=== PATIENT | female | born 1985 | race Caucasian/White ===

== ENCOUNTER → 2017-10-06 | Outpatient (CLI) | payer OTHER ==
[2017-10-06 17:32] LABS: URINE APPEARANCE TURBID (CLEAR); URINE BILIRUBIN NEG (NEG); URINE COLOR YELLOW; URINE NITRITE NEG (NEG); URINE SPECIFIC GRAVITY 1.027 (1.000-1.030); UROBILINOGEN NEG (NEG)
[2017-10-06 17:37] LABS: MANUAL MICROSCOPIC REQUIRED? NO; REVIEW REQ? NO
== END | disposition home or self-care (01) ==
LOC: C.LABSPEC 16:17
PROVIDERS: ATTEND Obstetrics & Gynecology
DX: Z34.01 Encounter for supervision of normal first pregnancy, first trimester (principal)

== ENCOUNTER → 2017-10-10 | Outpatient (CLI) | payer OTHER ==
[2017-10-10 14:51] LABS: BASO % 0.2 %; BASO ABS # 0.03 K/uL (0-0.2); COMPLETE YES; EOS % 0.4 %; HEMATOCRIT 36.9 % (37-47); IG% 0.5 %; LYMPH % 15.6 %; LYMPH ABS # 2.12 K/uL (1.2-3.4); MEAN CELL VOLUME 89.8 fL (80-100); MEAN CORPUSCULAR HEMOGLOBIN 30.9 pg (25-34); MEAN CORPUSCULAR HGB CONC 34.4 g/dl (32-36); MEAN PLATELET VOLUME 10.7 fL (7.4-10.4); MONO % 5.9 %; NEUT % 77.4 %; PLATELET COUNT 333 K/uL (130-400); RED BLOOD COUNT 4.11 M/uL (4.2-5.4); WHITE BLOOD COUNT 13.63 K/uL (4.8-10.8)
== END | disposition home or self-care (01) ==
LOC: C.LAB1850 13:10
PROVIDERS: ATTEND Obstetrics & Gynecology
DX: Z34.01 Encounter for supervision of normal first pregnancy, first trimester (principal)

== ENCOUNTER → 2017-11-15 | Outpatient (CLI) | payer OTHER | END | disposition home or self-care (01) | LOC: C.LAB1850 14:08 | PROVIDERS: ATTEND Obstetrics & Gynecology | DX: Z34.02 Encounter for supervision of normal first pregnancy, second trimester (principal); Z3A.00 Weeks of gestation of pregnancy not specified ==

== ENCOUNTER → 2018-02-07 | Outpatient (CLI) | payer OTHER ==
[2018-02-07 15:42] LABS: HEMATOCRIT 33.8 % (37-47); HEMOGLOBIN 11.7 g/dL (12.0-16.0)
== END | disposition home or self-care (01) ==
LOC: C.LAB1850 14:09
PROVIDERS: ATTEND Obstetrics & Gynecology
DX: Z34.03 Encounter for supervision of normal first pregnancy, third trimester (principal)

== ENCOUNTER 2021-06-23 07:59 | Inpatient (IN) ==
[2021-06-23] MEDS ORDERED: OXYTOCIN 30 UNITS/500 ML BAG IV PRN ×3 (09:32→15:30)
[2021-06-23 09:54] LABS: Hematocrit (blood only) 34.1 % (37-47); Hemoglobin 11.6 g/dL (12.0-16.0); Mean Corpuscular Hemoglobin 30.4 pg (25-34); Mean Corpuscular Volume 89.5 fL (80-100); Mean Platelet Volume 10.6 fL (7.4-10.4); Platelet Count 247 K/uL (130-400); RDW Coefficient of Variation 13.5 % (11.5-14.5); RDW Standard Deviation 44.2 fL (36.4-46.3); Red Blood Count 3.81 M/uL (4.2-5.4); White Blood Count 8.46 K/uL (4.8-10.8)
--- NOTE | 2021-06-23 10:14 | History & Physical Report ---
Date of Service June 23, 2021 Assessment & Plan (1) SROM (spontaneous rupture of membranes): Plan: 36 y/o at 38 5/7 wga admitted w/ SROM VSS Fetus cat 1 Labor - will manage expectantly, not previously checked so unsure of has progression. Plan recheck in few hours, start pit if no change GBS neg Epidural PRN Admission and Anticipated Discharge Date Admission Date: June 23, 2021 History of Present Illness Chief Complaint: SROM Primary Care Provider: NO PCP 36 y/o at 38 5/7 wga w/ BLAINE 07/02 by LMP 09/25 c/w tri US presents w/ c/o LOF since 5AM. +FM and irreg ctx, denies VB PNI: AMA Past [employer] Hx: G1 2000 D&E G2 2017 at 39 wks G3 2019 SAB G4 current Menarche 13, q23-27d cycles Denies abnl pap, 06/2020 neg cotest Denies hx STIs Allergies Allergy/AdvReac Type Severity Reaction Status Date / Time No Known Allergies Allergy Verified 06/23/21 09:08 Home Medications Medication Instructions Recorded Confirmed Type prenat.vits,alfredito,pms-ibyq-vzumm 1 tab PO DAILY 11/13/20 06/23/21 History acetaminophen 500 mg capsule 500 mg PO Q8 PRN 06/15/21 06/23/21 History diphenhydramine HCl 25 mg capsule 25 mg PO HS 06/15/21 06/23/21 History (Benadryl) ferrous sulfate 325 mg (65 mg 325 mg PO DAILY 06/15/21 06/23/21 History iron) tablet breast pump #1 ea 06/22/21 06/22/21 Rx Patient History Medical History No pertinent past medical history Surgical History History of bunionectomy Hx of LASIK Hx of oral surgery S/P dilation and curettage Family History Grandmother (Maternal) Diabetes Grandfather (Maternal) Diabetes Father Colonic polyp Denies family history of Ovarian cancer Breast cancer Colorectal cancer Social History Smoking Status: Never smoker Hx Alcohol Use: No Hx Substance Use: No Preferred Language: Namibian Communication Ability: Effective Flight Readiness Technician Required: No Beliefs That Will Affect Care: None marital status: marital status details: [phone] Current Living Situation: Family Current Living Situation Comment: and son current occupational status: employed current occupation: [employer]* Other Information That Helps Us Care for You: No Feels Safe at Home: Yes Safety Concerns: Feels Safe At This Time Assistive Devices: None Physical Exam Constitutional: WD/WN, vitals as above Respiratory: normal respiratory effort; no respiratory distress and no labored breathing Psychiatric: A+Ox3, euthymic affect Genitourinary: OB Exam Abdomen: + vertex and + estimated weight (7) Manual OB Exam: + cervical dilation 2 cm, + cervical effacement 70%, + station - 2 and + amniotic fluid (SSE +pooling, nitrazine, ferning) OB Exam Monitor Tracing: + external FHT monitor used, + external uterine monitor used (q3-6) and + category I (125/mod/+accel/-decel) Results & Data ([facility]) Vital Signs (Past 12 Hours) Vital Signs Temp Pulse Resp BP 06/23/21 08:23 98.4 F 20 06/23/21 08:17 88 114/55 L Laboratory Results OB Labs: Blood Type A Positive 11/24/20 Antibody Screen NEGATIVE 11/24/20 Hemoglobin 10.3 g/dL (12.0-16.0) L 04/10/21 Hematocrit 30.5 % (37-47) L 04/10/21 Mean Corpuscular Volume 91.4 fL (80-100) 11/24/20 Platelet Count 355 K/uL (130-400) 11/24/20 Rubella IgG Antibody Immune (Immune) 11/24/20 Rapid Plasma Reagin Nonreactive (Nonreactive) 11/24/20 Hepatitis B Surface Antigen Neg (Neg) 11/24/20 HIV (1&2) Ab and P24 Ag, 4th Gener Neg (Neg) 11/24/20 Glucose 1 Hour 50 gm Load 94 mg/dl (70-130) 04/10/21 Maternal Serum Alpha Fetoprotein 37.3 ng/mL 01/26/21 OB Optional Labs: Chlamydia trachomatis RNA NOT DETECTED (NOT DETECTED) 11/24/20 Neisseria gonorrhoeae RNA NOT DETECTED (NOT DETECTED) 11/24/20 Zika Virus 10/21/17 Alpha Fetoprotein Triple Screen SEE NOTE 01/26/21 Alpha Fetoprotein 32.2 NG/ML 11/15/17 Labs Reviewed: cf/sma neg 2016 afp neg--[facility] invitae low risk--[facility] GBS neg Diagnostic Findings Anterior plac Coding Level of Care Code None Diagnoses SROM (spontaneous rupture of membranes)
--- NOTE | 2021-06-23 11:52 | Labor Progress Brief Note ---
Date of Service June 23, 2021 Subjective Ctx seem to have spaced out Assessment & Plan (1) SROM (spontaneous rupture of membranes): Plan: 36 y/o at 38 5/7 wga admitted w/ SROM VSS Fetus cat 1 Labor - SVE unchanged, discussed pitocin as no change and ctx have spaced, pt amenable GBS neg Epidural PRN Admission and Anticipated Discharge Date Admission Date: June 23, 2021 Physical Exam Genitourinary: Manual OB Exam: + cervical dilation (2.5cm), + cervical effacement 70% and + station -2 OB Exam Monitor Tracing: + external FHT monitor used, + external uterine monitor used (q8-10) and + category I ( 125/mod/+accel/-decel) Results & Data ([facility]) Vital Signs (Past 12 Hours) Vital Signs Temp Pulse Resp BP 06/23/21 11:00 98.4 F 82 20 117/64 06/23/21 08:23 98.4 F 20 06/23/21 08:17 88 114/55 L Coding Level of Care Code None Diagnoses SROM (spontaneous rupture of membranes)
[2021-06-23] MEDS: LACTATED RINGER'S 1,000 ML IV PRN ×2 (12:09→14:19)
[2021-06-23] MEDS ORDERED: ePHEDrine sulfate 50 MG/ML AMP ONE (13:36)
[2021-06-23] MEDS ORDERED: fentaNYL citrate 100 MCG/2 ML VIAL ONE (13:36)
[2021-06-23] MEDS ORDERED: SODIUM CHLORIDE 0.9% INJ 10 ML VIAL ONE (13:36)
[2021-06-23] MEDS ORDERED: BUPIVACAINE 0.25% 30 ML VIAL ONE (13:36)
[2021-06-23] MEDS ORDERED: fentaNYL 2MCG/ML ROPIVACAINE 1.25MG/ML 100 ML BAG EPI ONE (13:37)
--- NOTE | 2021-06-23 14:08 | Anesthesiology Consultation ---
Date of Service June 23, 2021 Assessment & Plan (1) Encounter for pre-operative examination: Chart Review Chart Review: Acceptable Risk for Labor Epidural Consults Requested none ASA ASA2 Proposed Anesthesia Anesthesia Type: Labor Epidural Risk / Benefits Reviewed With: PT / POA / Parent / Guardian, Accepts Plan and Informed Consent Obtained History Height/Weight Height: 5 ft 7 in Weight: 75.75 kg Allergies Allergy/AdvReac Type Severity Reaction Status Date / Time No Known Allergies Allergy Verified 06/23/21 09:08 Medications Home Medications Medication Instructions Recorded Confirmed Last Taken prenat.vits,alfredito,srb-yjjq-[id number] 1 tab PO DAILY 11/13/20 06/23/21 06/23/21 06:00 acetaminophen 500 mg capsule 500 mg PO Q8 PRN 06/15/21 06/23/21 06/13/21 08:00 diphenhydramine HCl 25 mg capsule 25 mg PO HS 06/15/21 06/23/21 06/22/21 21:00 (Benadryl) ferrous sulfate 325 mg (65 mg 325 mg PO DAILY 06/15/21 06/23/21 06/23/21 06:00 iron) tablet breast pump #1 ea 06/22/21 06/22/21 Unknown Active Medications Generic Name Dose Route Start Last Admin Trade Name Freq PRN Reason Stop Dose Admin Lactated Ringer's 1,000 mls @ 125 mls/hr 06/23/21 09:32 06/23/21 13:32 Lr IV 06/25/21 09:31 999 mls/hr .Q8H PRN Infusion L&D Protocol Protocol Oxytocin 30 units in 500 mls @ 4 mls/hr 06/23/21 11:49 06/23/21 12:55 Pitocin IV 06/25/21 11:48 0.24 units/hr .Q24H PRN 4 mls/hr Labor Induction/Augmentation Titration Protocol 0.24 UNITS/HR Past Medical History Medical History No pertinent past medical history Exercise / Class Metabolic Activity II 4-5 Yardwork/Stairs/Walk up hill Past Family History Family History Grandmother (Maternal) Diabetes Grandfather (Maternal) Diabetes Father Colonic polyp Denies family history of Ovarian cancer Breast cancer Colorectal cancer Past Surgical History Surgical History History of bunionectomy Hx of LASIK Hx of oral surgery S/P dilation and curettage Past Anesthesia History No Hx of Anesthesia Complications and No Family Hx of Anesthesia Complications History of PONV No Hx of PONV and No Hx of Motion Sickness Social History Smoking Status: Never smoker Hx Alcohol Use: No Hx Substance Use: No substance use type: does not use Physical Exam Vital Signs Last Vital Signs Temp 98.4 F 06/23/21 13:10 Pulse 76 06/23/21 14:03 Resp 20 06/23/21 13:10 BP 134/69 06/23/21 13:54 Pulse Ox 98 06/23/21 14:03 ENMT Mouth: no dentition abnormality Thyromental Distance: > or= 3.5 Finger Breadths Mallampati Class: II Neck normal visual inspection Respiratory normal respiratory effort Auscultation: lungs clear to auscultation bilaterally Cardiovascular Rate/Rhythm: regular rate and regular rhythm Testing Laboratory Results 06/23/21 09:38
[2021-06-23] MEDS ORDERED: NALOXONE HCL 0.4 MG/1 ML VIAL/CARP IV PRN (14:27)
[2021-06-23] MEDS ORDERED: diphenhydrAMINE 50 MG/ML VIAL IV PRN (14:27)
[2021-06-23] MEDS ORDERED: ONDANSETRON INJ 2 MG/ML 2 ML VIAL IV PRN (14:27)
[2021-06-23] MEDS ORDERED: NALOXONE HCL 1 MG in SODIUM CHLORIDE 0.9% 1000ML 1,000 ML IV PRN (14:27)
[2021-06-23] MEDS ORDERED: NALBUPHINE HCL INJ 10 MG/ML AMP IV PRN (14:27)
[2021-06-23] MEDS ORDERED: ePHEDrine sulfate 50 MG/ML AMP IV PRN (14:27)
[2021-06-23] MEDS ORDERED: fentaNYL 2MCG/ML ROPIVACAINE 1.25MG/ML 100 ML BAG EPI PRN (14:27)
--- NOTE | 2021-06-23 15:17 | Delivery Summary ---
Vaginal Delivery Summary Date of Service June 23, 2021 Vaginal Delivery Summary and 2nd Degree LAC PREOPERATIVE DIAGNOSIS: 1. Single intrauterine at 38 5/7 2. Spontaneous rupture of membranes 3. AMA POSTOPERATIVE DIAGNOSIS: 1. Single intrauterine at 38 5/7 2. Spontaneous rupture of membranes 3. AMA 4. Delivered PROCEDURE: 1. Normal spontaneous vaginal delivery. SURGEON: Lynne Hood MD ANESTHESIA: Epidural. ESTIMATED BLOOD LOSS: 300 mL FLUIDS: Continuous LR. URINE OUTPUT: None. COMPLICATIONS: None. CONDITION: Stable. INDICATIONS: 36 y/o at 38 5/7 wga presented to L&D this morning after spontaneous rupture of membranes around 5AM. She was managed expectantly however did not make change and so was started on pitocin. She received an epidural for pain control and then rapidly progressed to complete and desired to push. FINDINGS: A viable male with Apgars of 8 and 9 at 1 and 5 minutes respectively. SPECIMEN: Cord blood OPERATIVE REPORT: The patient progressed to 10 cm, 100% effaced and +2 station, pushed over intact perineum with anesthesia to deliver a viable male infant, Apgars as above. Head of delivered in FREDERICK position. Loose body cord was present and delivered through. Body and shoulders were delivered without difficulty. was delivered to maternal abdomen and nursing staff. Delayed cord clamping was performed for 60 seconds. Cord was clamped and cut. Cord blood was obtained. Placenta delivered spontaneously intact with 3-vessel cord. IV oxytocin and fundal massage were given for excellent hemostasis. Vagina, cervix, perineum, and placenta were inspected. A second degree laceration was noted and repaired in the usual fashion using 3-0 Vicryl. There was excellent hemostasis. Sponge and needle counts correct x2. No sponges were left behind. Mother and stable in immediate period. [facility] Vaginal Delivery Charge Vaginal Delivery Codes: 84677 global code for the antepartum, delivery, and post- Delivery Type Details: and 2nd Degree LAC
[2021-06-23] MEDS ORDERED: BENZOCAINE 20% AER SPR 82.5 GM CAN EXT PRN (15:30)
[2021-06-23] MEDS ORDERED: SUPERCREAM 0.870% 15 GM JAR EXT PRN (15:30)
[2021-06-23] MEDS ORDERED: bisacodyL 10 MG SUPP PR PRN (15:30)
[2021-06-23] MEDS ORDERED: DIPHTHERIA/TETANUS/PERTUSSIS 0.5 ML SYR/VIAL IM ONE (15:30)
[2021-06-23] MEDS ORDERED: HYDROCORTISONE ACETATE 25 MG SUPP PR PRN (15:30)
[2021-06-23] MEDS ORDERED: LACTATED RINGER'S 1,000 ML IV SCH (15:30)
[2021-06-23] MEDS ORDERED: ACETAMINOPHEN 325 MG TAB PO PRN (15:30)
--- NOTE | 2021-06-23 15:35 | Anesthesia Procedure Note ---
Date of Service June 23, 2021 Anesthesia Post Epidural Note Vital Signs Vital Signs: Temp Pulse Resp BP Pulse Ox 98.4 F 76 20 110/66 98 06/23/21 13:10 06/23/21 15:31 06/23/21 15:16 06/23/21 15:31 06/23/21 14:43 Pain Intensity Bilateral Abdomen: Pain Intensity: 0 Notes Mental Status: alert / awake / arousable and participated in evaluation Nausea / Vomiting: adequately controlled Pain: adequately controlled Airway Patency, RR, SpO2: stable & adequate BP & HR: stable & adequate Hydration State: stable & adequate Neuraxial Anesthesia: was administered and sensory block is resolving Anesthetic Complications: no major complications apparent and Pt Satisfied with anesthetic care Epidural: Removed without complications and With tip intact
[2021-06-23] MEDS: DOCUSATE SODIUM 100 MG CAP PO SCH (20:24)
[2021-06-23] MEDS: IBUPROFEN 600 MG TAB PO PRN (20:24)
[2021-06-23] MEDS ORDERED: diphenhydrAMINE HCL 25 MG/10 ML UDC PO ONE (22:30)
[2021-06-24] MEDS: IBUPROFEN 600 MG TAB PO PRN ×5 (01:47→21:26)
--- NOTE | 2021-06-24 05:03 | Obstetrical Progress Note ---
Date of Service <Adam Duron DO - Last Filed: 06/24/21 07:10> June 24, 2021 Assessment & Plan <Adam Duron DO - Last Filed: 06/24/21 07:10> (1) Encounter for care and examination after delivery: - PPD 1 - A+, GBS-, RI - Vitals WNL. - Encourage . - Patient voiced she would like to stay another night, continue to monitor. <Lynne Hood MD - Last Filed: 06/24/21 07:13> (1) Encounter for care and examination after delivery: Subjective <Adam Duron DO - Last Filed: 06/24/21 07:10> Ambulation: ambulating normally Voiding: no voiding problems Passing Gas:: Yes Diet Tolerance:: regular diet Lochia:: Small Feeding Type:: breast feeding Current Pain Level(1-10): 4 Review of Systems Some cramping while . Denies fever, chills, sweats Denies shortness of breath, difficulty breathing, chest pain, palpitations, chest pressure. Denies breast pain. Denies dysuria. Denies headache or changes in vision Physical Exam <Adam Duron DO - Last Filed: 06/24/21 07:10> General: Alert, oriented. No acute distress. Cardiac: Regular rate and rhythm, no murmurs/rubs/gallops. Respiratory: Clear to auscultation bilaterally a/p, no wheezes/rales/rhonchi. No increased work of breathing. Symmetrical chest rise. No respiratory distress. Abdomen: Soft, nontender, nondistended. Bowel sounds present. Uterus: Uterine fundus firm, palpable 1 cm below umbilicus. Lower Extremities: No lower extremity edema or swelling. No deep calf pain. Golden's negative bilaterally Results & Data ([facility]) <Adam Duron DO - Last Filed: 06/24/21 07:10> Vital Signs (Past 12 Hours) Vital Signs Temp Pulse Pulse Resp BP BP Pulse Ox 06/24/21 04:00 37.0 C 68 16 108/69 98 06/24/21 00:00 36.9 C 68 16 103/69 98 06/23/21 18:20 37.1 C 94 H 18 107/66 95 06/23/21 17:45 36.8 C 85 20 102/55 L 06/23/21 17:31 84 105/60 06/23/21 17:16 91 H 112/73 06/23/21 17:01 89 107/60 <Lynne Hood MD - Last Filed: 06/24/21 07:13> Co-Signing Physician Notes Resident Physician Supervision Note: I interviewed and examined the patient. Discussed with Dr. Duron and agree with findings and plan as documented in the note. Any exceptions or clarifications are listed here: PP1 s/p , doing well. VSS, exam benign and wnl. Continue routine pp care, plan d/c tomorrow Documented By: Lynne Hood MD Resident Activity Tracking <Adam Duron DO - Last Filed: 06/24/21 07:10> Resident Involvement: Resident Care Provided Care Provided: OB Delivery
[2021-06-24 06:27] LABS: Hematocrit (blood only) 32.4 % (37-47); Mean Corpuscular Hemoglobin 30.6 pg (25-34); Mean Corpuscular Volume 90.3 fL (80-100); Platelet Count 239 K/uL (130-400); RDW Coefficient of Variation 13.5 % (11.5-14.5); RDW Standard Deviation 44.7 fL (36.4-46.3); Red Blood Count 3.59 M/uL (4.2-5.4); White Blood Count 10.98 K/uL (4.8-10.8)
[2021-06-24] MEDS: DOCUSATE SODIUM 100 MG CAP PO SCH ×2 (07:56→20:21)
[2021-06-24] MEDS: PRENATAL VITAMIN 1 TAB PO SCH (07:56)
[2021-06-24] MEDS ORDERED: bisacodyL 5 MG TABEC PO SCH (20:00)
[2021-06-25] MEDS: IBUPROFEN 600 MG TAB PO PRN ×2 (02:07→06:09)
--- NOTE | 2021-06-25 05:40 | Obstetrical Progress Note ---
Date of Service <Adam Duron DO - Last Filed: 06/25/21 07:09> June 25, 2021 Assessment & Plan <Adam Duron DO - Last Filed: 06/25/21 07:09> (1) Encounter for care and examination after delivery: - PPD 1 - A+, GBS-, RI - Vitals WNL. - Hgb 10.9 - Encourage . - Discussed discharge with patient. Patient wanting to go home today. Will discharge. <Judith Jackson MD - Last Filed: 06/25/21 07:18> (1) Encounter for care and examination after delivery: Subjective <Adam Duron - Last Filed: 06/25/21 07:09> Ambulation: ambulating normally Voiding: no voiding problems Passing Gas:: Yes Diet Tolerance:: regular diet Lochia:: Small Feeding Type:: breast feeding Current Pain Level(1-10): 3 (at stitches.) Review of Systems Denies fever, chills, sweats Denies shortness of breath, difficulty breathing, chest pain, palpitations, chest pressure. Denies breast pain. Denies dysuria. Denies headache or changes in vision Physical Exam <Adam Duron DO - Last Filed: 06/25/21 07:09> General: Alert, oriented. No acute distress. Cardiac: Regular rate and rhythm, no murmurs/rubs/gallops. Respiratory: Clear to auscultation bilaterally a/p, no wheezes/rales/rhonchi. No increased work of breathing. Symmetrical chest rise. No respiratory distress. Abdomen: Soft, nontender, nondistended. Bowel sounds present. Uterus: Uterine fundus firm, palpable 1 cm below umbilicus. Lower Extremities: No lower extremity edema or swelling. No deep calf pain. Golden's negative bilaterally Results & Data ([facility]) <Adam Duron - Last Filed: 06/25/21 07:09> Vital Signs (Past 12 Hours) Vital Signs Temp Pulse Pulse Resp BP Pulse Ox 06/24/21 23:50 36.9 C 77 18 112/73 06/24/21 19:40 37.2 C 74 16 117/74 97 <Judith Jackson MD - Last Filed: 06/25/21 07:18> Co-Signing Physician Notes Resident Physician Supervision Note: I interviewed and examined the patient. Discussed with Dr. Duron and agree with findings and plan as documented in the note. Any exceptions or clarificat ions are listed here: [ ] Documented By: Judith Jackson MD, FACOG Resident Activity Tracking <Adam Duron DO - Last Filed: 06/25/21 07:09> Resident Involvement: Resident Care Provided Care Provided: OB Delivery
[2021-06-25 06:09] LABS: Hematocrit (blood only) 32.1 % (37-47); Hemoglobin 10.9 g/dL (12.0-16.0)
[2021-06-25] MEDS: DOCUSATE SODIUM 100 MG CAP PO SCH (08:23)
[2021-06-25] MEDS: PRENATAL VITAMIN 1 TAB PO SCH (08:23)
== END 2021-06-25 11:37 | disposition home or self-care (01) | DRG 807 ==
LOC: OPB 07:59 → 4S1 08:00 → 4S2 18:33
DX: Z37.0 Single live birth; Z83.3 Family history of diabetes mellitus; Z3A.38 38 weeks gestation of pregnancy; O42.92 Full-term premature rupture of membranes, unspecified as to length of time between rupture and onset of labor; O70.1 Second degree perineal laceration during delivery

== ENCOUNTER 2023-01-28 06:52 | Inpatient (IN) ==
[2023-01-28] MEDS: LACTATED RINGER'S 1,000 ML IV PRN ×2 (07:00→11:04)
[2023-01-28] MEDS ORDERED: OXYTOCIN 30 UNITS/500 ML BAG IV PRN ×3 (07:15→18:31)
[2023-01-28] MEDS ORDERED: LIDOCAINE 1% LOCAL 20 ML VIAL INFIL PRN (07:15)
--- NOTE | 2023-01-28 07:17 | History & Physical Report ---
Date of Service January 28, 2023 Assessment & Plan (1) Normal labor: Plan admit for labor, expectant mangement, fetus category. anticipate History of Present Illness Chief Complaint: willir Primary Care Provider: Chari Moncada DO Patient is a 38owg with iup at39 4/7 weeks who presents to labor and delivery with contractions. no lof/vb. +fm. and Delivery Plans AMA>40@del *Anatomy Scan @ 20wks * Echo 22-24wks WNL *Growth scan @32wks *Weekly NST's @36 wks *Twice weekly NST @38wks *Weekly OFELIA's @38wks *Deliver by 40 wks OB Labs: Blood Type A Positive 07/29/22 Antibody Screen NEGATIVE 07/29/22 Hemoglobin 10.7 g/dl (12.0-16.0) L 11/10/22 Hematocrit 31.7 % (34.1-44.9) L 11/10/22 Mean Corpuscular Volume 88.7 fL (80.0-100.0) 07/29/22 Platelet CountE 337 K/uL (130-400) 07/29/22 Rubella IgG Antibody Immune (Immune) 07/29/22 Rapid Plasma Reagin Nonreactive (Nonreactive) 07/29/22 Hepatitis B Surface Antigen Neg (Neg) 11/24/20 Hepatitis B Surface Antigen. NON-REACTIVE (NON-REACTIVE) 07/29/22 Hepatitis C Antibody (EIA) NON-REACTIVE (NON-REACTIVE) 07/29/22 HIV (1&2) Ab and P24 Ag, 4th Gener Neg (Neg) 11/24/20 HIV (1&2) Ag and Ab Confirmation NON-REACTIVE (NON-REACTIVE) 07/29/22 Glucose 1 Hour 50 gm Load 126 mg/dl (70-130) 11/10/22 Maternal Serum Alpha Fetoprotein 29.5 ng/mL 08/25/22 OB Optional Labs: Chlamydia trachomatis RNA Not Detected (NotDetected) 07/29/22 Neisseria gonorrhoeae RNA Not Detected (NotDetected) 07/29/22 Zika Virus 10/21/17 Alpha Fetoprotein Triple Screen SEE NOTE 08/25/22 Alpha Fetoprotein 32.2 NG/ML 11/15/17 Labs Reviewed: cf/sma neg 2016 cfdna-low risk--mln gbs negative. Allergies Allergy/AdvReac Type Severity Reaction Status Date / Time No Known Allergies Allergy Verified 01/24/23 15:39 Home Medications Medication Instructions Recorded Confirmed Type prenat.vits,alfredito,[id number] 1 tab PO DAILY 11/13/20 01/24/23 History Patient History Medical History Encounter for care and examination after delivery Encounter for pre-operative examination History of chicken pox No pertinent past medical history SROM (spontaneous rupture of membranes) Surgical History History of bunionectomy Hx of LASIK Hx of oral surgery S/P dilation and curettage D&E Family History Grandmother (Maternal) Diabetes Grandfather (Maternal) Diabetes Father Colonic polyp Denies family history of Ovarian cancer Breast cancer Colorectal cancer Social History Smoking Status: Never smoker Hx Alcohol Use: No Hx Substance Use: No Preferred Language: Tunisian Communication Ability: Effective Alteration Specialist Required: No Beliefs That Will Affect Care: None marital status: marital status details: Mart [phone] Current Living Situation: Spouse and Family Current Living Situation Comment: , 2 children, mother in law, dog current occupational status: employed current occupation: [employer] business Feels Safe at Home: Yes Assistive Devices: None OB History Past Pregnancies Del. Date GA wks Lbr Lgth wt Sex Type del Anes Place Del Prov ? Comment Unknown 8 Aborted-Elective D&E january04/24/18 39 7lb 6oz M Local [facility] Dr. Cool No 07/17/20 Aborted-Spontaneous 06/23/21 38 7lbs 15.2oz M E pidural [facility] Dr Hood No [employer] History noncontributory Physical Exam Constitutional: WD/WN, vitals as above Gastrointestinal (Abdomen): soft, gravid, nt Psychiatric: A+Ox3, euthymic affect Genitourinary: cx--/-2 toco--q2-4min efm--130s with mod variability, accels to the 160s, no decels Results & Data Vital Signs (Past 12 Hours) Vital Signs Pulse BP 01/28/23 06:58 80 124/58 L Coding Level of Care Code None Diagnoses Normal labor O80; Z37.9
[2023-01-28 07:59] LABS: Hematocrit (blood only) 28.1 % (37.0-47.0); Hemoglobin 9.5 g/dl (12.0-16.0); Mean Corpuscular Hemoglobin 27.1 pg (25.0-34.0); Mean Corpuscular Hgb Conc 33.8 g/dL (32.0-36.0); Mean Corpuscular Volume 80.1 fL (80.0-100.0); Mean Platelet Volume 11.1 fL (9.4-12.4); Platelet Count 341 K/uL (130-400); RDW Coefficient of Variation 13.3 % (11.5-14.5); RDW Standard Deviation 38.4 fL (36.4-46.3); Red Blood Count 3.51 M/uL (4.20-5.40); White Blood Count 10.31 K/ul (4.8-10.8)
[2023-01-28] MEDS ORDERED: ePHEDrine sulfate 50 MG/ML AMP ONE (10:42)
[2023-01-28] MEDS ORDERED: SODIUM CHLORIDE 0.9% PF INJ 10 ML VIAL ONE (10:42)
[2023-01-28] MEDS ORDERED: fentaNYL citrate PF 100 MCG/2 ML VIAL ONE (10:42)
[2023-01-28] MEDS ORDERED: BUPIVACAINE 0.25% PF 30 ML VIAL ONE (10:42)
[2023-01-28] MEDS ORDERED: LIDOCAINE 2%/EPINEPHRINE 1:200,000 20 ML PF ONE (10:42)
[2023-01-28] MEDS ORDERED: fentaNYL 2MCG/ML ROPIVACAINE 1.25MG/ML 100 ML BAG EPI ONE (10:43)
[2023-01-28] MEDS ORDERED: fentaNYL 2MCG/ML ROPIVACAINE 1.25MG/ML 100 ML BAG EPI PRN (11:00)
[2023-01-28] MEDS ORDERED: NALBUPHINE HCL INJ 10 MG/ML AMP IV PRN (11:00)
[2023-01-28] MEDS ORDERED: NALOXONE HCL 0.4 MG/1 ML VIAL/CARP IV PRN (11:00)
[2023-01-28] MEDS ORDERED: ePHEDrine sulfate 50 MG/ML AMP IV PRN (11:00)
[2023-01-28] MEDS ORDERED: NALOXONE HCL 1 MG in SODIUM CHLORIDE 0.9% 1000ML 1,000 ML IV PRN (11:00)
[2023-01-28] MEDS ORDERED: diphenhydrAMINE 50 MG/ML VIAL IV PRN (11:00)
--- NOTE | 2023-01-28 11:00 | Anesthesiology Consultation ---
Date of Service January 28, 2023 Assessment & Plan Chart Review Chart Review: Acceptable Risk for Surgery and Patient NOT seen in Pre Admission Testing Consults Requested none History Height/Weight Height: 5 ft 7 in Weight: 75.296 kg Allergies Allergy/AdvReac Type Severity Reaction Status Date / Time No Known Allergies Allergy Verified 01/24/23 15:39 Medications Home Medications Medication Instructions Recorded Confirmed Last Taken prenat.vits,alfredito,lxr-bobm-plmpi 1 tab PO DAILY 11/13/20 01/28/23 01/27/23 Past Medical History Medical History Encounter for care and examination after delivery Encounter for pre-operative examination History of chicken pox No pertinent past medical history SROM (spontaneous rupture of membranes) Past Family History Family History Grandmother (Maternal) Diabetes Grandfather (Maternal) Diabetes Father Colonic polyp Denies family history of Ovarian cancer Breast cancer Colorectal cancer Past Surgical History Surgical History History of bunionectomy Hx of LASIK Hx of oral surgery S/P dilation and curettage D&E Social History Smoking Status: Never smoker Hx Alcohol Use: No Hx Substance Use: No substance use type: does not use Physical Exam Vital Signs Last Vital Signs Temp 97.9 F 01/28/23 07:37 Pulse 80 01/28/23 06:58 Resp 20 01/28/23 08:00 BP 124/58 L 01/28/23 06:58 Testing Laboratory Results 01/28/23 07:28 Blood Type A Positive 01/28/23 07:28 Antibody Screen NEGATIVE 01/28/23 07:28
[2023-01-28] MEDS ORDERED: ACETAMINOPHEN 325 MG TAB PO ONE (14:00)
--- NOTE | 2023-01-28 15:25 | Labor Progress Brief Note ---
Date of Service January 28, 2023 Subjective comfortable w/ epidural Assessment & Plan (1) Normal labor: Plan: 38 yo at 39 4/7 wga admitted in labor VSS fetus cat 1 labor - s/p arom GBS neg epidural in place Physical Exam Genitourinary: Manual OB Exam: + cervical dilation (4-5), + cervical effacement 70%, + station -2 and + amniotic fluid (on chux nitrazine positive, arom of forebag) OB Exam Monitor Tracing: + external FHT monitor used, + external uterine monitor used (5) and + category I (125/mod/+accel/-decel) Results & Data Vital Signs (Past 12 Hours) Vital Signs Temp Pulse Resp BP Pulse Ox 01/28/23 07:37 97.9 F 20 01/28/23 15:21 98 01/28/23 15:21 74 01/28/23 15:18 74 01/28/23 15:18 100/55 L 01/28/23 15:16 98 01/28/23 15:16 83 01/28/23 15:11 98 01/28/23 15:11 76 01/28/23 15:06 97 01/28/23 15:06 79 01/28/23 15:03 82 01/28/23 15:03 100/58 L 01/28/23 15:01 98 01/28/23 15:01 78 01/28/23 14:56 98 01/28/23 14:56 89 01/28/23 14:33 97.7 F 01/28/23 14:51 98 01/28/23 14:51 71 01/28/23 14:47 85 01/28/23 14:47 112/57 L 01/28/23 14:46 98 01/28/23 14:46 85 01/28/23 14:41 98 01/28/23 14:41 82 01/28/23 14:36 97 01/28/23 14:36 82 01/28/23 14:31 98 01/28/23 14:31 88 01/28/23 14:28 87 01/28/23 14:28 101/56 L 01/28/23 14:26 97 01/28/23 14:26 92 H 01/28/23 14:23 92 H 01/28/23 14:23 102/61 01/28/23 14:21 97 01/28/23 14:21 91 H 01/28/23 14:17 85 01/28/23 14:17 106/51 L 01/28/23 14:16 99 01/28/23 14:16 89 01/28/23 14:12 87 01/28/23 14:12 97/54 L 01/28/23 14:11 98 01/28/23 14:11 89 01/28/23 14:06 98 01/28/23 14:06 85 01/28/23 14:01 98 01/28/23 14:01 91 H 01/28/23 14:01 89 01/28/23 14:01 107/57 L 01/28/23 13:56 98 01/28/23 13:56 88 01/28/23 13:57 88 01/28/23 13:57 102/55 L 01/28/23 13:53 82 01/28/23 13:53 101/53 L 01/28/23 13:51 98 01/28/23 13:51 77 01/28/23 13:48 86 01/28/23 13:48 95/55 L 01/28/23 13:46 98 01/28/23 13:46 92 H 01/28/23 13:43 86 01/28/23 13:43 108/61 01/28/23 13:41 98 01/28/23 13:41 88 01/28/23 13:36 98 01/28/23 13:36 90 01/28/23 13:36 89 01/28/23 13:36 110/60 01/28/23 13:31 98 01/28/23 13:31 89 01/28/23 13:26 98 01/28/23 13:26 85 01/28/23 13:26 80 01/28/23 13:26 98/57 L 01/28/23 13:23 109 H 01/28/23 13:23 93/52 L 01/28/23 13:21 98 01/28/23 13:21 107 H 01/28/23 13:20 110 H 01/28/23 13:20 73/36 L 01/28/23 13:16 97 01/28/23 13:16 77 01/28/23 12:30 20 01/28/23 12:30 20 03/24/23 11:40 18 01/28/23 11:40 18 01/28/23 11:45 20 01/28/23 11:45 20 01/28/23 11:50 20 01/28/23 11:50 20 01/28/23 13:11 98 01/28/23 13:11 107 H 01/28/23 13:06 97 01/28/23 13:06 110 H 01/28/23 13:01 98 01/28/23 13:01 104 H 01/28/23 12:56 98 01/28/23 12:56 79 01/28/23 12:51 99 01/28/23 12:51 111 H 01/28/23 12:51 94 H 01/28/23 12:51 97/55 L 01/28/23 12:46 99 01/28/23 12:46 73 01/28/23 12:41 99 01/28/23 12:41 86 01/28/23 12:36 99 01/28/23 12:36 74 01/28/23 12:36 98/59 L 01/28/23 12:31 99 01/28/23 12:31 83 01/28/23 12:26 98 01/28/23 12:26 85 01/28/23 12:21 98 01/28/23 12:21 91 H 01/28/23 12:19 95 H 01/28/23 12:19 91/50 L 01/28/23 12:16 98 01/28/23 12:16 97 H 01/28/23 12:11 100 01/28/23 12:11 91 H 01/28/23 12:00 18 01/28/23 12:00 18 01/28/23 12:06 99 01/28/23 12:06 94 H 01/28/23 12:05 83 01/28/23 12:05 100/58 L 01/28/23 11:00 20 01/28/23 11:00 97.9 F 20 01/28/23 12:01 100 01/28/23 12:01 95 H 01/28/23 11:56 98 01/28/23 11:56 98 H 01/28/23 11:51 98 01/28/23 11:51 97 H 01/28/23 11:49 100 H 01/28/23 11:49 101/59 L 01/28/23 11:46 98 01/28/23 11:46 96 H 01/28/23 11:43 90 01/28/23 11:43 101/55 L 01/28/23 11:41 99 01/28/23 11:41 98 H 01/28/23 11:41 97 H 01/28/23 11:41 99/59 L 01/28/23 11:39 101 H 01/28/23 11:39 100/60 01/28/23 11:37 98 H 01/28/23 11:37 102/65 01/28/23 11:36 97 01/28/23 11:36 92 H 01/28/23 11:35 86 01/28/23 11:35 105/61 01/28/23 11:33 89 01/28/23 11:33 99/57 L 01/28/23 11:31 98 01/28/23 11:31 97 H 01/28/23 11:30 98 H 01/28/23 11:30 99/57 L 01/28/23 11:28 91 H 01/28/23 11:28 97/54 L 01/28/23 11:26 94 01/28/23 11:27 82 L 01/28/23 11:26 112 H 01/28/23 11:27 90 01/28/23 11:27 96/53 L 01/28/23 11:25 104 H 01/28/23 11:25 103/59 L 01/28/23 11:23 108 H 01/28/23 11:23 114/63 01/28/23 11:21 98 01/28/23 11:21 92 H 01/28/23 11:21 102 H 01/28/23 11:21 114/55 L 01/28/23 11:16 100 01/28/23 11:16 96 H 01/28/23 11:11 100 01/28/23 11:11 88 01/28/23 07:30 20 01/28/23 07:30 20 01/28/23 08:00 20 01/28/23 08:00 20 01/28/23 06:58 80 124/58 L Coding Level of Care Code None Diagnoses Normal labor O80; Z37.9
--- NOTE | 2023-01-28 18:18 | Delivery Summary ---
Vaginal Delivery Summary Date of Service January 28, 2023 Vaginal Delivery Summary and 2nd Degree LAC PREOPERATIVE DIAGNOSIS: 1. Single intrauterine at 39 4/7 wga 2. Labor 3. AMA POSTOPERATIVE DIAGNOSIS: 1. Single intrauterine at 39 4/7 wga 2. Labor 3. AMA 4. Delivered PROCEDURE: 1. Normal spontaneous vaginal delivery. SURGEON: Lynne Hood MD ANESTHESIA: Epidural. ESTIMATED BLOOD LOSS: 300 mL FLUIDS: Continuous LR. URINE OUTPUT: None. COMPLICATIONS: None. CONDITION: Stable. INDICATIONS: 38 yo at 39 4/7 wga presented in labor. She received an epidural for pain control and underwent AROM. Contractions spaced out and so pitocin was started and she rapidly progressed to complete and desired to push. FINDINGS: A viable female , weight pending with Apgars of 8 and 9 at 1 and 5 minutes respectively. SPECIMEN: Cord blood OPERATIVE REPORT: The patient progressed to 10 cm, 100% effaced and +2 station, pushed over intact perineum with anesthesia to deliver a viable male , weight and Apgars as above. Head of delivered in BRANDO position. Loose nuchal cord was noted and rapidly delivered through. Body and shoulders were delivered without difficulty. was delivered to maternal abdomen and nursing staff. Delayed cord clamping was performed for 60 seconds. Cord was clamped and cut. Cord blood was obtained. Placenta delivered spontaneously intact with 3-vessel cord. IV oxytocin and fundal massage were given for excellent hemostasis. Vagina, cervix, perineum, and placenta were inspected. A second degree laceration was noted and repaired using 3-0 vicryl. There was good hemostasis. Sponge and needle counts correct x2. No sponges were left behind. Mother and stable in immediate period. [facility] [place] Vaginal Delivery Charge Vaginal Delivery Codes: 80838 global code for the antepartum, delivery, and post- Delivery Type Details: and 2nd Degree LAC
[2023-01-28] MEDS ORDERED: bisacodyL 10 MG SUPP PR PRN (18:31)
[2023-01-28] MEDS ORDERED: HYDROCORTISONE ACETATE 25 MG SUPP PR PRN (18:31)
[2023-01-28] MEDS ORDERED: BENZOCAINE 20% AER SPR 82.5 GM CAN EXT PRN (18:31)
[2023-01-28] MEDS ORDERED: DIPHTHERIA/TETANUS/PERTUSSIS 0.5mL SYR/VIAL (Age 7+yrs) IM ONE (18:31)
--- NOTE | 2023-01-28 19:13 | Anesthesia Procedure Note ---
Date of Service January 28, 2023 Anesthesia Post Epidural Note Vital Signs Vital Signs: Temp Pulse Resp BP Pulse Ox 97.7 F 71 18 104/64 97 01/28/23 14:33 01/28/23 18:44 01/28/23 18:45 01/28/23 18:44 01/28/23 17:21 Notes Mental Status: alert / awake / arousable and participated in evaluation Nausea / Vomiting: adequately controlled Pain: adequately controlled Airway Patency, RR, SpO2: stable & adequate BP & HR: stable & adequate Hydration State: stable & adequate Neuraxial Anesthesia: was administered and sensory block is resolving Anesthetic Complications: no major complications apparent and Pt Satisfied with anesthetic care Epidural: Removed without complications and With tip intact
[2023-01-28] MEDS: IBUPROFEN 600 MG TAB PO PRN ×2 (19:18→23:36)
[2023-01-28] MEDS ORDERED: PSEUDOEPHEDRINE HCL 30 MG TAB PO PRN (21:42)
[2023-01-28] MEDS: DOCUSATE SODIUM 100 MG CAP PO SCH (21:57)
[2023-01-29] MEDS: ACETAMINOPHEN 325 MG TAB PO PRN ×3 (02:50→22:25)
[2023-01-29] MEDS: IBUPROFEN 600 MG TAB PO PRN ×4 (03:42→20:36)
[2023-01-29] MEDS ORDERED: CALCIUM CARBONATE 500 MG CHEWABLE TAB PO PRN (03:59)
--- NOTE | 2023-01-29 05:35 | Obstetrical Progress Note ---
Date of Service <Christina Carbajal - Last Filed: 01/29/23 06:13> January 29, 2023 Assessment & Plan <Christina Carbajal - Last Filed: 01/29/23 06:13> (1) Status post vaginal delivery: continue OOB, ambulation, diet as tolerated <Lynne Manuel Hood MD - Last Filed: 01/29/23 07:28> (1) Status post vaginal delivery: Subjective <Christina aCrbajal - Last Filed: 01/29/23 06:13> Lynne is a 38 y/o female who is now PPD # 1 following vaginal delivery at 39 4/7 weeks. Reports feeling well overall this morning. Mild abdominal cramping, pain well managed on analgesics. Voiding. Tolerating meals overnight and able to ambulate some. Some persistent lochia with some improvement this morning. Breast feeding. Review of Systems Denies fever, chills, sweats Denies shortness of breath, difficulty breathing, chest pain, palpitations, chest pressure. Denies breast pain. Denies dysuria. Denies headache or changes in vision. Physical Exam <Christina Carbajal - Last Filed: 01/29/23 06:13> General: Alert, oriented. No acute distress. Cardiac: Regular rate and rhythm, no murmurs/rubs/gallops. Respiratory: Clear to auscultation bilaterally a/p, no wheezes/rales/rhonchi. No increased work of breathing. Symmetrical chest rise. No respiratory distress. Abdomen: Soft, nontender, nondistended. Uterus: Uterine fundus firm, palpable 2 cm below umbilicus. Lower Extremities: No lower extremity edema or swelling. No deep calf pain. Results & Data <Christina CarbajalDO - Last Filed: 01/29/23 06:13> Vital Signs (Past 12 Hours) Vital Signs Temp Pulse Pulse Resp BP BP Pulse Ox 01/29/23 02:45 36.8 C 61 18 104/66 98 01/28/23 22:41 36.7 C 78 20 110/69 98 01/28/23 19:15 36.8 C 18 01/28/23 18:45 18 01/28/23 18:15 18 01/28/23 18:00 18 01/28/23 17:45 18 01/28/23 19:13 78 01/28/23 19:13 104/57 L 01/28/23 18:44 71 01/28/23 18:44 104/64 01/28/23 18:29 73 01/28/23 18:29 102/56 L 01/28/23 18:14 67 01/28/23 18:14 103/62 01/28/23 17:44 78 01/28/23 17:44 110/61 O2 Del Method 01/29/23 02:45 Room Air 01/28/23 22:41 Room Air 01/28/23 19:15 01/28/23 18:45 01/28/23 18:15 01/28/23 18:00 01/28/23 17:45 01/28/23 19:13 01/28/23 19:13 01/28/23 18:44 01/28/23 18:44 01/28/23 18:29 01/28/23 18:29 01/28/23 18:14 01/28/23 18:14 01/28/23 17:44 01/28/23 17:44 <Lynne Hood MD - Last Filed: 01/29/23 07:28> Co-Signing Physician Notes Resident Physician Supervision Note: I interviewed and examined the patient. Discussed with Dr. Carbajal and agree with findings and plan as documented in the note. Any exceptions or clarifications are listed here: PP1 s/p , doing well. VSS, exam benign and wnl. Continue routine pp care Documented By: Lynne Hood MD Resident Activity Tracking <Christina Carbajal DO - Last Filed: 01/29/23 06:13> Resident Involvement: Resident Care Provided Care Provided: OB Delivery (post )
[2023-01-29] MEDS: FERROUS SULFATE 325 MG TAB PO SCH (08:56)
[2023-01-29] MEDS: PRENATAL VITAMIN 1 TAB PO SCH (08:56)
[2023-01-29] MEDS: DOCUSATE SODIUM 100 MG CAP PO SCH ×2 (08:56→20:36)
[2023-01-29] MEDS ORDERED: bisacodyL 5 MG TABEC PO SCH (20:00)
[2023-01-30] MEDS: IBUPROFEN 600 MG TAB PO PRN (01:47)
[2023-01-30] MEDS: ACETAMINOPHEN 325 MG TAB PO PRN (05:41)
--- NOTE | 2023-01-30 07:08 | Obstetrical Progress Note ---
Date of Service January 30, 2023 Assessment & Plan (1) Status post vaginal delivery: Routine PPD2 care, ready to go home. D/C instructions reviewed. Subjective Ambulation: ambulating normally Voiding: no voiding problems Passing Gas:: Yes Diet Tolerance:: regular diet Lochia:: Small Feeding Type:: breast feeding Physical Exam Constitutional WD/WN, vitals as above Eyes PERRL, conjunctivae normal, anicteric sclerae Neck normal visual inspection Respiratory normal respiratory effort and able to speak in complete sentences; no respiratory distress and no labored breathing Cardiovascular Rate/Rhythm: regular rate and regular rhythm Extremities: no edema Chest (Breasts) Chest: normal inspection of chest Gastrointestinal (Abdomen) Inspection/Auscultation: abdomen normal to inspection Soft, postgravid Psychiatric A+Ox3, euthymic affect Genitourinary OB Exam Abdomen: + fundal height Fundus: + firm and + relation to umbilicus (fun dus just below umbilicus); not tender Results & Data Vital Signs (Past 12 Hours) Vital Signs Temp Pulse Resp BP Pulse Ox O2 Del Method 01/29/23 23:25 98.1 F 71 20 109/76 97 Room Air
[2023-01-30] MEDS: FERROUS SULFATE 325 MG TAB PO SCH (07:30)
[2023-01-30] MEDS: DOCUSATE SODIUM 100 MG CAP PO SCH (07:30)
[2023-01-30] MEDS: PRENATAL VITAMIN 1 TAB PO SCH (07:30)
== END 2023-01-30 13:30 | disposition home or self-care (01) | DRG 807 ==
LOC: OPB 06:52 → 4S1 06:54 → 4E2 19:54